=== PATIENT | female | born 1960 | race Caucasian/White ===

== ENCOUNTER 2023-11-10 09:39 | Outpatient (REF) | payer MEDICAID, SELFPAY ==
--- NOTE | ~2023-11-10 | XR_ITS ---
EXAMINATION: XR SHOULDER, RIGHT CLINICAL INFORMATION: Right shoulder pain COMPARISON: None available. TECHNIQUE: AP external rotation, Grashey, scapular Y, and axillary views of the right shoulder. FINDINGS: The bones and soft tissues are normal. No fracture. Glenohumeral and acromioclavicular alignment is anatomic with normal joint space. No abnormal soft tissue calcifications. XR/XR shoulder RT min 2V IMPRESSION: Normal right shoulder.
--- NOTE | ~2023-11-10 | XR_ITS ---
EXAMINATION: XR LUMBOSACRAL SPINE CLINICAL INFORMATION: Low back pain for 2 months COMPARISON: None available. TECHNIQUE: Three views of the lumbosacral spine. FINDINGS: The vertebral bodies and posterior elements are normal aside from some mild spondylitic endplate changes most marked at the superior ventral endplates of L3 and L4. Vertebral body heights are preserved. The disc spaces are preserved and the vertebral alignment is normal. The paraspinal soft tissues are normal. XR/XR lumbar spine 2-3V IMPRESSION: Mild spondylitic changes. No acute finding.
== END 2023-11-10 09:40 | disposition home or self-care (01) ==
LOC: HO.HHCX 09:39
PROVIDERS: Visit Provider Internal Medicine
DX: M25.511 Pain in right shoulder (principal)
CPT/HCPCS: 36415; 72100; 73030; 80061; 82306; 82607; 82746; 84443; 85025; 85652; 87389; 87522

== ENCOUNTER 2023-11-10 10:26 | Outpatient (REF) | payer MEDICAID, SELFPAY ==
[2023-11-10 13:09] LABS: MANUAL DIFF FLAG NO
[2023-11-10 13:22] LABS: Basophils Percent Auto 0.5 % (0-2); Eosinophils Absolute Auto 0.1 X10*3/uL (0.0-0.4); Eosinophils Percent Auto 1.4 % (0-4); Hematocrit 40.4 % (37.0-47.0); Hemoglobin 13.4 g/dl (12.0-16.0); Imm Gran Abs Auto 0.01 X10*3/uL (0.00-0.03); Imm Gran Pct Auto 0.2 % (0.0-0.4); Lymphocytes Absolute Auto 1.4 X10*3/uL (1.2-4.9); Lymphocytes Percent Auto 32.8 % (20-40); Mean Corpuscular HGB Conc 33.2 g/dl (31.0-35.0); Mean Corpuscular Hemoglobin 29.1 pg (27.0-33.0); Mean Corpuscular Volume 87.6 fL (80.0-98.0); Mean Platelet Volume 10.7 fL (9.4-12.3); Monocytes Absolute Auto 0.3 X10*3/uL (0.1-1.2); Monocytes Percent Auto 7.5 % (2-11); Neutrophils Absolute Auto 2.4 x10*3/uL (2.0-8.3); Neutrophils Percent Auto 57.6 % (45-73); Platelet Count 236 X10*3/uL (160-400); Red Blood Count 4.61 X10*6/uL (4.20-5.50); Red Cell Distribution Width 13.2 % (11.0-16.0); White Blood Count 4.2 X10*3/uL (4.8-10.8)
[2023-11-10 13:46] LABS: Cholesterol 291 mg/dL (<200); HDL Cholesterol 43 mg/dL (>40); LDL Cholesterol Calculated 212 mg/dL (<100); Triglycerides 180 mg/dL (<150)
[2023-11-10 14:02] LABS: Erythrocyte Sedimentation Rate 11 MM/HR (0-20); Folate 11.3 ng/mL (> or = 4.0); Vitamin B12 560 pg/mL (200-900)
[2023-11-10 14:03] LABS: TSH reflex Free T4 1.67 uIU/mL (0.32-4.0); Vitamin D 25-OH Total 43.6 ng/mL (>30)
[2023-11-10 14:58] LABS: HIV AB/AG Nonreactive (Nonreactive); HIV Num 1 0.06 S/CO (0.00-0.99)
[2023-11-13 16:04] LABS: HCV Log PCR <1.18 NOT DETECTED Log IU/mL (NOT DETECTED); HepC Viral Load <15 NOT DETECTED IU/mL (NOT DETECTED)
== END 2023-11-10 10:27 | disposition home or self-care (01) ==
LOC: HO.HHCL 10:26
PROVIDERS: Visit Provider Internal Medicine
DX: M54.50 Low back pain, unspecified (principal); R53.83 Other fatigue; R03.0 Elevated blood-pressure reading, without diagnosis of hypertension
CPT/HCPCS: 36415; 80061; 82306; 82607; 82746; 84443; 85025; 85652; 87389; 87522

== ENCOUNTER 2024-03-01 15:11 | Outpatient (REF) | payer MEDICAID, SELFPAY ==
--- NOTE | ~2024-03-01 | MM_ITS ---
EXAMINATION: MM SCREENING DIGITAL BREAST TOMOSYNTHESIS, BILATERAL CLINICAL INFORMATION: Screening. Asymptomatic. COMPARISON: Mammography: Comparison is made with available priors TECHNIQUE: Digital breast mammography with tomosynthesis is performed in both the craniocaudal and mediolateral oblique views along with computer-aided detection (CAD). FINDINGS: There are scattered areas of fibroglandular density (ACR BI-RADS breast composition Category b). There are no significant masses, abnormal calcifications, or other abnormalities. MM/MM tomosynthesis screening BI IMPRESSION: No mammographic evidence of malignancy. ASSESSMENT: BI-RADS BI-RADS 1 - Negative RECOMMENDATION: Routine annual mammography screening. 1 year F/U This examination should not preclude the clinical evaluation of a suspicious palpable abnormality. This patient's information was entered into a reminder system with a target due date for their next mammogram. Electronically signed by: Mily Dean DO 03/14/2024 03:47 PM PRINCE
== END 2024-03-01 15:12 | disposition home or self-care (01) ==
LOC: HO.MAMMO 15:11
PROVIDERS: PCP Internal Medicine; Visit Provider Internal Medicine
DX: Z12.31 Encounter for screening mammogram for malignant neoplasm of breast (principal)
CPT/HCPCS: 77063; 77067

== ENCOUNTER → 2024-03-01 15:45 | Outpatient (BNV) | payer MEDICAID, SELFPAY | PROVIDERS: PCP Internal Medicine; Visit Provider Internal Medicine | DX: Z12.31 Encounter for screening mammogram for malignant neoplasm of breast (principal) | CPT/HCPCS: 77063; 77067 ==

== ENCOUNTER 2024-09-06 09:49 | Outpatient (REF) | payer MEDICAID, SELFPAY ==
--- OUTSIDE RECORDS SUMMARY | 2024-09-06 11:03 | XMS_ITS | Clinical Summary ---
Author Organization [employer] Address [address] [place] [address] Care Team Providers Care Box Brander Name Role Phone Italo Killian MD Primary Care Prov ider Allergies Active Allergy Reactions Criticality Noted Date Comments Paroxetine Dizziness 11/10/2023 Medications meloxicam (Mobic) 15 MG tabletIndication s:Acute pain of right shoulder,Low back pain radiating down leg Take 1 tablet (15 mg) by mouth Once per day. 30 tablet 11 11/10/2023 5 Active rosuvastatin (Crestor) 20 MG tabletIndication s:Hypercholester olemia Take 1 tablet (20 mg) by mouth Once per day. 30 tablet 11 11/13/2023 5 Active Blood Pressure kit 1 kit Once per day. 1 kit 01/18/2024 Active losartan (Cozaar) 25 MG tablet Take 1 tablet (25 mg) by mouth Once per day. 90 tablet 3 06/30/2024 6 Active Active Problems Problem Noted Date Diagnosed Date Chronic right-sided low back pain without sciati ca 02/15/2024 Assessment & Plan (02/15/2024 9:31 AM EDT): Will refer to PT, patient refers pain is localized Primary hypertension 01/18/2024 Assessment & Plan (06/30/2024 10:46 AM EST): Controlled, continue low sodium diet and exercise as tolerated, keep bp log, new labs ordered, will follow up in 3 months Assessment & Plan (02/15/2024 9:29 AM EDT): Controlled, continue losartan, keep low sodium diet and exercise as tolerated, follow up in 3 months Assessment & Plan (01/18/2024 4:21 PM EDT): Will start on losartan, told to decrease sodium in diet, exercise as tolerated, keep bp log, follow up in 1 month Encounter for medical examination to establish c are 01/18/2024 Assessment & Plan (01/18/2024 4:23 PM EDT): PMHx: Cholesterol/mdd Psh: - All Paroxetine Meds Rosuvastatin Patient not working on disability due to MDD hx A0 LMP 2001 Screening for colon cancer 01/18/2024 Assessment & Plan (01/18/2024 4:24 PM EDT): Will place referral for evaluation Screening for cervical cancer 01/18/2024 Assessment & Plan (01/18/2024 4:25 PM EDT): Will refer for a pap smear with a female provider Screening for breast cancer 01/18/2024 Encounter for screening mamm ogram for malignant neoplasm of breast 01/18/2024 Chronic right shoulder pain 01/18/2024 Assessment & Plan (01/18/2024 4:27 PM EDT): Will refer for pt Mixed conductive and sensori neural hearing loss of both ears 01/18/2024 Assessment & Plan (01/18/2024 4:28 PM EDT): Will refer to audiology for hearing loss eval Depressed mood 05/01/2016 Pure hypercholesterolemia 05/13/2011 Assessment & Plan (06/30/2024 10:47 AM EST): Patient stopped taking rosuvastatin 3-4 months ago, risk were discussed, including high risk for stroke and MA, new labs ordered Assessment & Plan (02/15/2024 9:30 AM EDT): On rosuvastatin, refers not skipping medication, will order new labs for guidance of therapy Assessment & Plan (01/18/2024 4:19 PM EDT): On rosuvastatin, she refers has not been taking it, reivewed lab results and risk vs benefits of taking medication, she refers she will restart treatment Allergic rhinitis 05/13/2011 Eating disorder 03/29/2008 Dizziness and giddiness 03/08/2008 Encounters Date Type Department Care Team Description 07/22/2024 Population Health Risk Score Community Care [facility] ([facility]) Department [address] [address] [place] [id number] Provider, Population Health Generic 06/30/2024 10:30 AM EST Telemedicine [facility] [address] [place] [address] Italo Killian MD Primary hypertension (Primary Dx); Pure hypercholesterolemia 06/30/2024 Travel from Last 3 Months Immunizations Name Administration Dates Next Due Influenza, seasonal, injectable, preservative fr ee 01/18/2024 Tdap 01/18/2024 Family History Medical History Relation Name Comments Prostate cancer Father Lung cancer Father's Brother Bone cancer Father's Sister Alzheimer's disease Mother Relation Name Status Comments Father Father's Brother Father's Sister Mother Social History Tobacco Use Types Packs/Day Years Used Date Smoking Tobacco: Never Passive Smoke Exposure: Never Smokeless Tobacco: Never Tobacco Cessation:Counseling Given: Not Answered Alcohol Use Standard Drinks/Week Comments Never 0 (1 standard drink = 0.6 oz pur e alcohol) Depression Answer Date Recorded Patient Health Questionnaire-9 Score 6 01/18/2024 Patient Health Questionnaire-9 Score 6 01/18/2024 Last PHQ-9: Questionnaire Data Not on file 0 01/18/2024 Housing Stability Answer Date Recorded What is your housing situation today? I have karma smith 01/07/[address] you li ve. Do you have problems with any of the following? None of the above 01/07/2024 Food Insecurity Answer Date Recorded Within the past 12 months, y ou worried that your food would run out before you got money to buy more: Never True 01/07/2024 Within the past 12 months,th e food you bought just didn't last and you didn't have enough money to get more: Never True Transportation Answer Date Recorded In the past 12 months, has l ack of transportation kept you from medical appts, meetings, work or from getting things needed for daily living? Yes, it has kept me from medical appointments or getting medications. 01/07/2024 Utilities Answer Date Recorded In the past 12 months, has t he electric, gas, oil or water company threatened to shut off services in your home? No 01/07/2024 Depression Answer Date Recorded Patient Health Questionnaire-2 Score 0 01/18/2024 Internet Access Answer Date Recorded Internet Access Q1 Yes 01/11/2024 Internet Access Q2 Not on file 01/11/2024 Comments Unknown Sex and Gender Information Value Date Recorded Sex Assigned at Female 03/10/2022 10:16 AM EDT Legal Sex Female 10:16 AM EDT Gender Identity Female 03/10/2022 10:16 AM EDT Sexual Orientation Straight 03/10/2022 10 :16 AM EDT Last Filed Vital Signs Vital Sign Reading Time Taken Comments Blood Pressure 118/58 06/30/2024 10:38 AM EST Pulse 68 06/30/2024 10:38 AM EST Temperature 36.3 ??C (97.4 ??F) 01/18/2024 10:59 AM E DT Respiratory Rate 20 01/18/2024 10:59 AM EDT Oxygen Saturation 99% 01/18/2024 10:59 AM EDT Inhaled Oxygen Concentration - - Weight 53.5 kg (118 lb) 01/18/2024 10:59 AM EDT Height 148.6 cm (4' 10.5 ) 01/18/2024 10:59 AM E DT Body Mass Index 24.24 01/18/2024 10:59 AM EDT Plan of Treatment Upcoming Encounters Date Type Department Care Team (Late st Contact Info) Description 09/20/2024 9:00 AM EDT Procedure Visit [facility] [address] [place] [address] Joann Ny MD [address] [place] [address] 09/27/2024 1:30 PM EDT Office Visit [facility] [address] [place] [address] Italo Killian MD [address] [place] [address] Health Maintenance Due Date Last Done Comments CT Colonography 1961 Colonoscopy 1961 Colorectal Cancer Screening 1961 FIT DNA/Cologuard 1961 FIT 1961 FOBT 1961 Sigmoidoscopy 1961 Alcohol/Substance Use Screening 1973 Pap Smear 1982 Cervical Cancer Screening 1991 HPV/Cotest 1991 Pneumococcal Vaccine: 50+ Years (1 of 1 - PCV) 2011 Zoster Vaccines (1 of 2) 2011 COVID-19 Vaccine ( - 2023-2 5 season) 2024 SDOH Screening 01/06/2025 01/07/2024 Depression Screening 01/17/2025 01/18/2024, 01/18/2024 Tobacco Screening 02/03/2025 02/04/2024 Mammogram 03/01/2026 03/01/2024 Lipid Panel 11/09/2028 11/10/2023 DTaP/Tdap/Td Vaccines (2 - T d or Tdap) 01/17/2034 01/18/2024, 03/10/2006, 01/23/2000 RSV Patients and Patients Aged 60 years or older (1 - 1-dose 75+ series) 2036 HIV Screening Completed 11/10/2023 Hepatitis C Screening Completed 11/10/2023 Influenza Vaccine Completed 01/18/2024 HIB Vaccines Aged Out No longer eligi ble based on patient's age to complete this topic HPV Vaccines Aged Out No longer eligi ble based on patient's age to complete this topic Hepatitis A Vaccines Aged Out No long er eligible based on patient's age to complete this topic Hepatitis B Vaccines Aged Out No long er eligible based on patient's age to complete this topic IPV Vaccines Aged Out No longer eligi ble based on patient's age to complete this topic Meningococcal Vaccine Aged Out No oscar gordy eligible based on patient's age to complete this topic RSV under 20 months Aged Out No longe r eligible based on patient's age to complete this topic Rotavirus Vaccines Aged Out No longer eligible based on patient's age to complete this topic Procedures Procedure Name Priority Date/Time Associated Diagnosis Comments BI MAMMOGRAM SCREENING TOMOSYNTHESIS BILATERAL Routine 03/01/2024 3:20 PM EDT Encounter for screening mammogram for malignant neoplasm of breast HEPATITIS C VIRAL RNA, QUANTITATIVE, REAL-TIME PCR Routine 11/10/2023 10:30 AM EDT Other fatigue Elevated BP without diagnosis of hypertension HIV 1/2 ANTIGEN/ANTIBODY, FOURTH GENERATION W/RFL Routine 11/10/2023 10:30 AM EDT Other fatigue Elevated BP without diagnosis of hypertension LIPID PANEL, STANDARD Routine 11/10/2023 10:30 AM EDT Other fatigue Elevated BP without diagnosis of hypertension from Last 3 Months or Most Recently Relevant to Health Maintenance Results * BI Mammogram Screening Tomosynthesis Bilateral (03/01/2024 3:20 PM EDT) Anatomical Region Laterality Modality Breast Bilateral Mammography 03/01/2024 3:20 PM EDT Narrative 03/14/2024 3:50 PM EST ? [facility] ? [address] ?[place] [address] ? Mammography Report ? Signed ? Patient: Price,Tamiko ?MR#: [id number] ? : 1960 ?Acct:[id number] ? Age/Sex: 63 / F ?ADM Date: 10/22/24 ? Loc: HO.MAMMO ? Attending Dr: Italo Bermudez MD ? Ordering Physician: Italo Killian MD ?Res ?? ults: 1Negative ? Date of Service: 03/01/24 ?Follow Up: 1 Year From Orig ?? inal Mammogram ? Procedure(s): MM tomosynthesis screening BI ?? Accession Number(s): [id number] ? cc: Italo Killian MD ? EXAMINATION: ?? MM SCREENING DIGITAL BREAST TOMOSYNTHESIS, BILATERAL ? CLINICAL INFORMATION: ? Screening. Asymptomatic. ? COMPARISON: ?? Mammography: Comparison is made with available priors ? TECHNIQUE: ?? Digital breast mammography with tomosynthesis is performed in both the ?? craniocaudal and mediolateral oblique views along with computer-aided ?? detection (CAD). ? FINDINGS: ?? There are scattered areas of fibroglandular density (ACR BI-RADS breast ?? composition Category b). ? There are no significant masses, abnormal calcifications, or other ?? abnormalities. ? MM/MM tomosynthesis screening BI ?? IMPRESSION: ?? No mammographic evidence of malignancy. ? ASSESSMENT: ? BI-RADS BI-RADS 1 - Negative ? RECOMMENDATION: ?? Routine annual mammography screening. ? 1 year F/U ? This examination should not preclude the clinical evaluation of a ?? suspicious palpable abnormality. ? This patient's information was entered into a reminder system with a ?? target due date for their next mammogram. ? Electronically signed by: ??Mily Dean DO ??03/14/2024 03:47 PM EST ?? RP ? Dictated By: ?Mily Dean DO ? Signed By: ?<Electronically signed by Mily Dean, DO in OV> ? 03/14/24 1547 ? DD/ 1520 ? TD/TT: 03/01/24 1536 ? Information Receptionist: ? Procedure Note Donotuseinterpreter, Image - 03/14/2024 [facility] [address] [place] [address] Mammography Report Signed Patient: Shalini Price VMR#: [id number] : 2Acct:[id number] Age/Sex: 63 / FADM Date: 03/01/24 Loc: HO.MAMMO Attending Dr: Italo Bermudez MD Ordering Physician: Italo Killian ults: 1Negative Date of Service: 03/01/24Follow Up: 1 Year From Orig inal Mammogram Procedure(s): MM tomosynthesis screening BI Accession Number(s): [id number] cc: Italo Killian MD EXAMINATION: MM SCREENING DIGITAL BREAST TOMOSYNTHESIS, BILATERAL CLINICAL INFORMATION: Screening. Asymptomatic. COMPARISON: Mammography: Comparison is made with available priors TECHNIQUE: Digital breast mammography with tomosynthesis is performed in both the craniocaudal and mediolateral oblique views along with computer-aided detection (CAD). FINDINGS: There are scattered areas of fibroglandular density (ACR BI-RADS breast composition Category b). There are no significant masses, abnormal calcifications, or other abnormalities. MM/MM tomosynthesis screening BI IMPRESSION: No mammographic evidence of malignancy. ASSESSMENT: BI-RADS BI-RADS 1 - Negative RECOMMENDATION: Routine annual mammography screening. 1 year F/U This examination should not preclude the clinical evaluation of a suspicious palpable abnormality. This patient's information was entered into a reminder system with a target due date for their next mammogram. Electronically signed by: Mily Dean DO 03/14/2024 03:47 PM EST Dictated By: Mily Dean DO Signed By: <Electronically signed by Mily Dean DO in OV> 03/14/24 1547 DD/ 1520 TD/TT: 03/01/24 1536 Information Receptionist: us Italo Bermudez MD IMG BI PROCEDURES Edited Result - Final * Hepatitis C Viral RNA, Quantitative, Real-Time PCR (11/10/2023 10:30 AM EDT) Pathologist [facility] Hepatitis C Viral Load <15 NOT DETECTED NOT DETECTED IU/mL [facility] HCV Log PCR <1.18 NOT DETECTED NOT DETECTED Log IU/mL [facility] Comment:For additional infor susan, please refer [email or web address].[email or web address]/faq/[email or web address](This link is being provided for informational/educational purposes only.)THIS TEST WAS PERFORMED AT:[facility] [place] [phone] BARNHART MD Blood Venous blood specimen / Unknown 11/10/2023 10:30 AM EDT 11/10/2023 1:02 PM EDT us Lisbeth Velez MD LAB BLOOD ORDERABLES Final Result [facility] [address] [place] [phone] [phone] * HIV-1/2 Antigen and Antibodies, Fourth Generation, with Reflexes (11/10/2023 10:30 AM EDT) Pathologist [facility] HIV AB/AG Nonreactive Nonreactive [facility] Comment:HIV-1 p24 Ag and/or HIV-1/HIV-2 Ab not detected.A test result that is nonreactive does not exclude thepossibility of exposure to or infection with HIV-1 and/orHIV-2. Nonreactive results in this assay for individualswith prior exposure to HIV-1 and/or HIV-2 may be due toantigen and antibody levels that are below the limit ofdetection of this assay.The [employer] HIV Ag/Ab Combo assay result andsupplemental assay results should be interpreted inconjunction with the patient's clinical presentation,history and other laboratory results. If the results areinconsistent with clinical evidence, additional testing issuggested to confirm the result. Blood Venous blood specimen / Unknown 11/10/2023 10:30 AM EDT 11/10/2023 1:02 PM EDT us Lisbeth Velez MD LAB BLOOD ORDERABLES Final Result Performing Organization Address [facility]/ZIP Co de Phone Number [facility] [address] [place] [address] [phone] * (ABNORMAL) Lipid Panel, Standard (11/10/2023 10:30 AM EDT) Triglycerides 180(H) <150 mg/dL [facility] Comment:Desirable Triglyceri de: less than 150 mg/dLBorderline High Triglyceride 150-199 mg/dLHigh Triglyceride: 200-499 mg/dLVery High Triglyceride: greater than or equal to 5OO mg/dL Cholesterol 291(H) <200 mg/dL [facility] Comment:Desirable Cholestero l: less than 200 mg/dLBorderline High Cholesterol: 200-239 mg/dLHigh Cholesterol: greater than 239 mg/dL LDL Cholesterol Calculated 212(H) <100 mg/dL [facility] Comment:Desirable LDL: less than 100 mg/dLNear Optimal/Above Optimal LDL: 110- 129 mg/dLBorderline High LDL: 130-159 mg/dLHigh LDL: 160-189 mg/dLVery High LDL: greater than or equal to 190 mg/dL HDL Cholesterol 43 >40 mg/dL [facility] Comment:Desirable HDL: great er than 40 mg/dL Note: This HDL assay may give artificially low results in patients with liver disease. Blood Venous blood specimen / Unknown 11/10/2023 10:30 AM EDT 11/10/2023 1:05 PM EDT us Lisbeth Velez MD LAB BLOOD ORDERABLES Final Result Performing Organization Address [facility]/ZIP Co de Phone Number [facility] [address] [place] [address] [phone] from Last 3 Months or Most Recently Relevant to Health Maintenance Insurance [facility] C3 Care Teams Box Brander Relationship Specialty Start Date End Date Italo Killian MD [address] [place] [id number] PCP - General Internal Medicine 01/18/24
[2024-09-06 14:25] LABS: MANUAL DIFF FLAG NO
[2024-09-06 14:30] LABS: Basophils Percent Auto 0.4 % (0-2); Eosinophils Absolute Auto 0.3 X10*3/uL (0.0-0.4); Eosinophils Percent Auto 6.3 % (0-4); Hematocrit 42.6 % (37.0-47.0); Hemoglobin 13.9 g/dl (12.0-16.0); Imm Gran Abs Auto 0.01 X10*3/uL (0.00-0.03); Imm Gran Pct Auto 0.2 % (0.0-0.4); Lymphocytes Absolute Auto 1.6 X10*3/uL (1.2-4.9); Lymphocytes Percent Auto 35.4 % (20-40); Mean Corpuscular HGB Conc 32.6 g/dl (31.0-35.0); Mean Corpuscular Hemoglobin 28.7 pg (27.0-33.0); Mean Platelet Volume 11.1 fL (9.4-12.3); Monocytes Absolute Auto 0.4 X10*3/uL (0.1-1.2); Monocytes Percent Auto 8.2 % (2-11); Neutrophils Absolute Auto 2.3 x10*3/uL (2.0-8.3); Neutrophils Percent Auto 49.5 % (45-73); Platelet Count 247 X10*3/uL (160-400); Red Blood Count 4.84 X10*6/uL (4.20-5.50); Red Cell Distribution Width 13.5 % (11.0-16.0); White Blood Count 4.6 X10*3/uL (4.8-10.8)
[2024-09-06 14:52] LABS: Alanine Aminotransferase 24 U/L (0-31); Albumin Level 4.6 g/dL (3.5-5.0); Alkaline Phosphatase 60 U/L (39-117); Anion Gap 12 (12-20); Aspartate Amino Transferase 33 U/L (5-31); Bilirubin Total 0.5 mg/dL (0.0-1.0); Blood Urea Nitrogen 10 mg/dL (9-16); Calcium 9.6 mg/dL (8.4-10.2); Carbon Dioxide 29 mmol/L (22-29); Chloride 105 mmol/L (96-108); Cholesterol 227 mg/dL (<200); Estimated Glomerular Filt Rate > 60; Glucose Random 84 mg/dL (60-115); HDL Cholesterol 39 mg/dL (>40); LDL Cholesterol Calculated 129 mg/dL (<100); Sodium 141 mmol/L (135-145); Total Protein 7.6 g/dL (6.5-8.0); Triglycerides 295 mg/dL (<150)
== END 2024-09-06 09:50 | disposition home or self-care (01) ==
LOC: HO.CHCLDS 09:49
PROVIDERS: Visit Provider Internal Medicine
DX: I10 Essential (primary) hypertension (principal)
CPT/HCPCS: 36415; 80053; 80061; 85025

== ENCOUNTER 2025-03-07 14:53 | Outpatient (REF) | payer MEDICAID, SELFPAY ==
--- OUTSIDE RECORDS SUMMARY | 2025-03-07 19:18 | XMS_ITS | Clinical Summary ---
Author Organization [employer] Address [address] [place] [address] Care Team Providers Care Optoelectronic Technician Name Role Phone Italo Killian MD Primary Care Prov ider Allergies Active Allergy Reactions Criticality Noted Date Comments Paroxetine Dizziness 11/10/2023 Medications Blood Pressure kit 1 kit Once per day. 1 kit 01/18/20 24 Active fluticasone (Flonase) 50 MCG/ACT nasal spray Administer 1-2 sprays into each nostril Once per day. Shake gently. Before first use, prime pump. After use, clean tip and replace cap. 16 g 2 09/28/19 25 026 Active cetirizine (ZyrTEC) 10 MG tablet Take 1 tablet (10 mg) by mouth Once per day. 90 tablet 3 09/28/19 25 026 Active rosuvastatin (Crestor) 20 MG tabletIndicati ons:Hyperchole sterolemia Take 1 tablet (20 mg) by mouth Once per day. 30 tablet 11 11/13/19 24 025 Discontinued losartan (Cozaar) 25 MG tablet Take 1 tablet (25 mg) by mouth Once per day. 90 tablet 3 06/30/19 25 025 Discontinued Active Problems Problem Noted Date Diagnosed Date Chronic right-sided low back pain without sciati ca 02/15/2024 Assessment & Plan (02/15/2024 9:31 AM EDT): Will refer to PT, patient refers pain is localized Primary hypertension 01/18/2024 Assessment & Plan (02/21/2025 11:17 AM EDT): Controlled with diet and lifestyle modifications continue low sodium diet, keep blood pressure log, follow up in 4 months Assessment & Plan (09/27/2024 1:33 PM EDT): Uncontrolled, she refers at home remains below 140/90, she is not taking losartan as prescribed, risk were dicussed including /SC/CVA. She understands the risk and wants to avoid taking medication for now Assessment & Plan (06/30/2024 10:46 AM EST): [...] 05/01/2016 Pure hypercholesterolemia 05/13/2011 Assessment & Plan (02/21/2025 11:19 AM EDT): Will order new blood test for guidance of therapy Assessment & Plan (09/27/2024 1:34 PM EDT): Patient no taking rosuvastatin, wants to do diet and natural remedies instead, discussed blood work results, risk were discussed. Assessment & Plan (06/30/2024 10:47 AM EST): Patient stopped taking rosuvastatin 3-4 months ago, risk were discussed, including high risk for stroke and SC, new labs ordered Assessment & Plan (02/15/2024 [...] Encounters Date Type Department Care Team Description 02/21/2025 10:30 AM EDT Telemedicine [facility] [address] [place] [address] Italo Killian MD Primary hypertension (Primary Dx); Pure hypercholesterolemia; Screening for colon cancer 02/21/2025 Travel from Last 3 Months Immunizations Immunization Administration Dates Next Due Influenza, seasonal, injectable, [...] Answer Date Recorded Patient Health Questionnaire-9 Score 5 02/21/2025 Patient Health Questionnaire-9 Score 5 02/21/2025 Last PHQ-9: Questionnaire Data Not on file 1 Housing Stability Answer Date Recorded What is your housing situation today? I have karma smith 02/21/[address] you li ve. Do you have problems with any of the following? None of the above 02/21/2025 Food Insecurity Answer Date Recorded Within the past 12 months, y ou worried that your food would run out before you got money to buy more: Never True 02/21/2025 Within the past 12 months,th e food you bought just didn't last and you didn't have enough money to get more: Never True Transportation Answer Date Recorded In the past 12 months, has l ack of transportation kept you from medical appts, meetings, work or from getting things needed for daily living? No 02/21/2025 Utilities Answer Date Recorded In the past 12 months, has t he electric, gas, oil or water company threatened to shut off services in your home? No 02/21/2025 Depression Answer Date Recorded Patient Health Questionnaire-2 Score 2 02/21/2025 Internet Access Answer Date Recorded Internet Access Q1 Yes 02/21/2025 Internet Access Q2 Not on file 02/21/2025 Comments Unknown Sex and Gender Information Value Date Recorded Sex Assigned at Female 03/10/2022 10:16 AM EDT Legal Sex Female 10:16 AM EDT Gender Identity Female 03/10/2022 10:16 AM EDT Sexual Orientation Straight 03/10/2022 10 :16 AM EDT Last Filed Vital Signs Vital Sign Reading Time Taken Comments Blood Pressure 124/65 02/21/2025 10:23 AM EDT Pulse 88 09/27/2024 1:11 PM EDT Temperature 36.7 C (98.1 F) 09/27/2024 1:11 PM EDT Respiratory Rate 16 09/27/2024 1:11 PM EDT Oxygen Saturation 97% 09/27/2024 1:11 PM EDT Inhaled Oxygen Concentration - - Weight 54.9 kg (121 lb) 09/27/2024 1:11 PM EDT Height 148.6 cm (4' 10.5 ) 09/27/2024 1:11 PM ED T Body Mass Index 24.86 09/27/2024 1:11 PM EDT Plan of Treatment Health Maintenance Due Date Last Done Comments CT Colonography 1961 Colonoscopy 1961 Colorectal Cancer Screening 1961 FIT DNA/Cologuard 1961 FIT 1961 FOBT 1961 Sigmoidoscopy 1961 Pap Smear 1982 Cervical Cancer Screening 1991 HPV/Cotest 1991 Pneumococcal Vaccine: 50+ Years (1 of 1 - PCV) 2011 Zoster Vaccines (1 of 2) 2011 COVID-19 Vaccine (1 - 2023-2 5 season) 2025 Influenza Vaccine (#1) 2025 01/18/2024 Tobacco Screening 02/03/2025 02/04/2024 Alcohol/Substance Use Screening 02/21/2026 02/21/2025 Depression Screening 02/21/2026 02/21/2025, 02/21/2025 Disability Screening 02/21/2026 02/21/2025 SDOH Screening 02/21/2026 02/21/2025 Mammogram 03/01/2026 03/01/2024 Lipid Panel 09/06/2029 09/06/2024, 11/10/2023 DTaP/Tdap/Td Vaccines (2 - T d or Tdap) 01/17/2034 01/18/2024, 03/10/2006, 01/23/2000 RSV Patients and Patients Aged 60 years or older (1 - 1-dose 75+ series) 2036 HIV Screening Completed 11/10/2023 Hepatitis C Screening Completed 11/10/2023 HIB Vaccines Aged Out No longer eligi [...] patient's age to complete this topic Meningococcal B Vaccine Aged Out No l onger eligible based on patient's age to complete [...] Procedure Name Priority Date/Time Associated Diagnosis Comments LIPID PANEL, STANDARD Routine 09/06/2024 9:30 AM EDT Primary hypertension BI MAMMOGRAM SCREENING TOMOSYNTHESIS BILATERAL Routine 03/01/2024 [...] Recently Relevant to Health Maintenance Results * (ABNORMAL) Lipid Panel, Standard (09/06/2024 9:30 AM EDT) Triglycerides 295(H) <150 mg/dL [facility] Comment:Desirable Triglyceri de: less than 150 mg/dLBorderline High Triglyceride 150-199 mg/dLHigh Triglyceride: 200-499 mg/dLVery High Triglyceride: greater than or equal to 5OO mg/dL Cholesterol 227(H) <200 mg/dL [facility] Comment:Desirable Cholestero l: less than 200 mg/dLBorderline High Cholesterol: 200-239 mg/dLHigh Cholesterol: greater than 239 mg/dL LDL Cholesterol Calculated 129(H) <100 mg/dL [facility] Comment:Desirable LDL: less than 100 mg/dLNear Optimal/Above Optimal LDL: 110- 129 mg/dLBorderline High LDL: 130-159 mg/dLHigh LDL: 160-189 mg/dLVery High LDL: greater than or equal to 190 mg/dL HDL Cholesterol 39(L) >40 mg/dL [facility] Comment:Desirable HDL: great er than 40 mg/dL Note: This HDL assay may give artificially low results in patients with liver disease. Blood Venous blood specimen / Unknown 09/06/2024 9:30 AM EDT 09/06/2024 2:20 PM EDT us Italo Bermudez MD LAB BLOOD ORDERABL ES Final Result [facility] [address] [place] [phone] * BI Mammogram Screening Tomosynthesis Bilateral (03/01/2024 3:20 PM EDT) Anatomical Region Laterality Modality Breast Bilateral Mammography 03/01/2024 3:20 PM EDT Narrative 03/14/2024 3:50 PM EST [facility] [address] [place] [address] Mammography Report Signed Patient: Shalini Price V MR#: [id number] : 1960 Acct:[id number] Age/Sex: 63 / F ADM Date: 03/01/24 Loc: HO.MAMMO Attending Dr: Italo Bermudez MD Ordering Physician: Italo Killian MD Res ults: 1Negative Date of Service: 03/01/24 Follow Up: 1 Year From Orig inal Mammogram Procedure(s): MM tomosynthesis screening BI Accession Number(s): [id number] cc: Italo Killian MD EXAMINATION: MM SCREENING [...] 03/14/24 1547 DD/ 1520 TD/TT: 03/01/24 1536 Tire Servicer: Procedure Note Donotuseinterpreter, Image - 03/14/2024 [facility] [address] [place] [address] Mammography Report Signed Patient: Shalini Price VMR#: [id number] : 2Acct:[id number] Age/Sex: 63 / FADM Date: 03/01/24 Loc: HO.MAMMO Attending Dr: Italo Bermudez MD Ordering Physician: Italo Killian ults: 1Negative Date of Service: 03/01/24Follow Up: 1 Year From Orig inal Mammogram Procedure(s): MM tomosynthesis screening BI Accession Number(s): [id number] cc: Italo Killian MD EXAMINATION: MM SCREENING [...] 03/14/24 1547 DD/ 1520 TD/TT: 03/01/24 1536 Tire Servicer: us Italo Bermudez MD IMG BI PROCEDURES Edited Result - Final * Hepatitis C Viral RNA, Quantitative, Real-Time PCR (11/10/2023 10:30 AM EDT) Hepatitis C Viral Load <15 NOT DETECTED NOT DETECTED IU/mL [facility] HCV Log PCR <1.18 NOT DETECTED NOT DETECTED Log IU/mL [facility] Comment:For additional infor mation, please refer tohttp://education.[employer]/faq/LDQ11l2(This link is being provided for informational/educational purposes only.)THIS TEST WAS PERFORMED AT:[facility] [place] [phone] BARNHART MD Blood Venous blood specimen / Unknown 11/10/2023 10:30 AM EDT 11/10/2023 1:02 PM EDT us Lisbeth Velez MD LAB BLOOD ORDERABLES Final Result [facility] [address] [place] [phone] * HIV-1/2 Antigen and Antibodies, Fourth Generation, with Reflexes (11/10/2023 10:30 AM EDT) HIV AB/AG Nonreactive Nonreactive [facility] Comment:HIV-1 p24 Ag and/or HIV-1/HIV-2 Ab not detected.A test result that is nonreactive does not exclude thepossibility of exposure to or infection with HIV-1 and/orHIV-2. Nonreactive results in this assay for individualswith prior exposure to HIV-1 and/or HIV-2 may be due toantigen and antibody levels that are below the limit ofdetection of this assay.The Spondo HIV Ag/Ab Combo assay result andsupplemental assay results should be interpreted inconjunction with the patient's clinical presentation,history and other laboratory results. If the results areinconsistent with clinical evidence, additional testing issuggested to confirm the result. Blood Venous blood specimen / Unknown 11/10/2023 10:30 AM EDT 11/10/2023 1:02 PM EDT us Lisbeth Velez MD LAB BLOOD ORDERABLES Final Result [facility] [address] [place] [phone] from Last 3 Months or Most Recently Relevant to Health Maintenance Insurance [facility] C3 Care Teams Optoelectronic Technician Relationship Specialty Start Date End Date Italo Killian MD [address] [place] [phone] PCP - General Internal Medicine 01/18/24
== END 2025-03-07 14:54 | disposition home or self-care (01) ==
LOC: HO.MAMMO 14:53
PROVIDERS: PCP Internal Medicine; Visit Provider Internal Medicine
DX: Z12.31 Encounter for screening mammogram for malignant neoplasm of breast (principal)
CPT/HCPCS: 77063; 77067

== ENCOUNTER → 2025-03-07 15:30 | Outpatient (BNV) | payer MEDICAID, SELFPAY | PROVIDERS: PCP Internal Medicine; Visit Provider Internal Medicine | DX: Z12.31 Encounter for screening mammogram for malignant neoplasm of breast (principal) | CPT/HCPCS: 77063; 77067 ==

== ENCOUNTER 2025-04-18 14:17 | Outpatient (REF) | payer MEDICAID, SELFPAY ==
--- OUTSIDE RECORDS SUMMARY | 2025-04-18 10:20 | XMS_ITS | Encounter Summary ---
Author Organization [employer] Address [address] [place] [address] Care Team Providers Care Equine Science Instructor Name Role Phone Italo Killian MD Primary Care Prov ider Encounter Details Date Type Department Care Team (Latest Contact Info) Description 04/18/2025 10:20 AM EST Procedure Visit [facility] [address] [place], [place] [phone] Joann Ny MD [address] [place] [address] Screening for cervical cancer (Primary Dx) Social History Tobacco Use Types Packs/Day Years Used Date Smoking Tobacco: Never Passive Smoke Exposure: Never Smokeless Tobacco: Never Alcohol Use Standard Drinks/Week Comments Never 0 [...] Orientation Straight 03/10/2022 10 :16 AM EDT documented as of this encounter Last Filed Vital Signs Vital Sign Reading Time Taken Comments Blood Pressure 134/84 04/18/2025 10:47 AM EST Pulse 76 04/18/2025 10:47 AM EST Temperature 36.3 C (97.4 F) 04/18/2025 10:47 AM EST Respiratory Rate 20 04/18/2025 10:47 AM EST Oxygen Saturation 98% 04/18/2025 10:47 AM EST Inhaled Oxygen Concentration - - Weight 48.3 kg (106 lb 6.4 oz) 04/18/2025 10:47 AM EST Height 151 cm (4' 11.45 ) 04/18/2025 10:47 AM ES T Body Mass Index 21.17 04/18/2025 10:47 AM EST documented in this encounter Plan of Treatment Scheduled Orders Name Type Priority Associated Diagnoses Orde r Schedule Pap Smear Pathology and Cytology Routine Screening for cervical cancer Ordered: 04/18/2025 HPV High Risk with Reflex to Subtypes Lab Routine Screening for cervical cancer Ordered: 04/18/2025 documented as of this encounter Visit Diagnoses Diagnosis Screening for cervical cancer- Primary Screening for malignant neoplasm of the cervix documented in this encounter Additional Health Concerns Assessment Noted Time PHQ-9 Depression Total Score: 5 02/22/20 25 10:21 AM EDT documented as of this encounter Care Teams Equine Science Instructor Relationship Specialty Start Date End Date Italo Killian MD [address] [place] [phone] PCP - General Internal Medicine 01/18/24 documented as of this encounter
--- OUTSIDE RECORDS SUMMARY | 2025-04-18 20:17 | XMS_ITS | Encounter Summary ---
Author Organization [employer] Address [address] [place] [address] Care Team Providers Care Middle School Art Teacher Name Role Phone Italo Killian MD Primary Care Prov ider Encounter Details Date Type Department Care Team (Latest Contact Info) Description 04/15/2025 Travel Social History Tobacco Use Types Packs/Day Years [...] is your housing situation today? I have karmadani smith 02/21/[address] you [...] AM EDT documented as of this encounter Plan of Treatment Not on file documented as of this encounter Visit Diagnoses Not on filedocumented in this encounter Additional Health Concerns Assessment Noted Time PHQ-9 Depression Total Score: 5 02/22/20 25 10:21 AM EDT documented as of this encounter Care Teams Middle [employer] Art Teacher Relationship Specialty Start Date End Date Italo Killian MD [address] [place] [phone] PCP - General Internal Medicine 01/18/24 documented as of this encounter
--- OUTSIDE RECORDS SUMMARY | 2025-04-18 20:17 | XMS_ITS | Encounter Summary ---
Author Organization [employer] Address [address] [place] [address] Care Team Providers Care Expeditionary Fighting Vehicle Crewman Name Role Phone Italo Killian MD Primary Care Prov ider Reason for Visit * Reason Onset Date Comments chart prep 04/17/2025 Encounter Details Date Type Department Care Team ([facility] Contact Info) Description 04/17/[address] [facility] [address] [place], [place] [phone] Italo Killian MD [address] [place] [address] chart prep Social History Tobacco Use Types Packs/Day Years [...] AM EDT documented as of this encounter Miscellaneous Notes * Telephone Encounter - Jenny Almanzar [place] - 04/17/2025 2:49 PM EST Chart Prep Labs: not applicable Images: not applicable Referrals: not applicable Vaccines due: Covid, Flu, PCV20, and Zoster Screenings: not applicable Overdue care gaps: Tobacco documented in this encounter Plan of Treatment Not on file documented as of this encounter Visit Diagnoses Not on filedocumented in this encounter Additional Health Concerns Assessment Noted Time PHQ-9 Depression Total Score: 5 02/22/20 25 10:21 AM EDT documented as of this encounter Care Teams Expeditionary Fighting Vehicle Crewman Relationship Specialty Start Date End Date Italo Killian MD [address] [place] [phone] PCP - General Internal Medicine 01/18/24 documented as of this encounter
--- OUTSIDE RECORDS SUMMARY | 2025-04-18 20:17 | XMS_ITS | Clinical Summary ---
Author Organization [employer] Address [address] [place] [address] Care Team Providers Care Injection Molding Operator Name Role Phone Italo Killian MD Primary Care Prov ider Allergies Active Allergy Reactions Criticality Noted Date Comments Paroxetine Dizziness 11/10/2023 Medications Blood Pressure kit 1 kit Once per day. 1 kit 4 Active fluticasone (Flonase) 50 MCG/ACT nasal spray Administer 1-2 sprays into each nostril Once per day. Shake gently. Before first use, prime pump. After use, clean tip and replace cap. 16 g 2 5 09/28/19 26 Active cetirizine (ZyrTEC) 10 MG tablet Take 1 tablet (10 mg) by mouth Once per day. 90 tablet 3 5 09/28/19 26 Active Active Problems Problem Noted Date Diagnosed [...] losartan as prescribed, risk were dicussed including /NV/CVA. She understands the risk and wants to [...] discussed, including high risk for stroke and NV, new labs ordered Assessment & Plan (02/15/2024 9:30 AM EDT): On rosuvastatin, refers not skipping medication, will order new labs for guidance of therapy Assessment & Plan (01/18/2024 4:19 PM EDT): On rosuvastatin, she refers has not been taking it, reivewed lab results and risk vs benefits of taking medication, she refers she will restart treatment Allergic rhinitis 05/13/2011 Hearing loss 05/13/2011 Pain in limb 12/07/2008 Eating disorder 03/29/2008 Dizziness and giddiness 03/08/2008 Encounters Date Type Department Care Team Description 04/18/2025 10:20 AM EST Procedure Visit [facility] [address] [place] [address] Joann Ny MD Screening for cervical cancer (Primary Dx) 04/18/2025 Travel 04/17/2025 Telephone [facility] [address] [place] [address] Italo Killian MD chart prep 04/15/2025 Travel 03/07/2025 Orders Only [facility] [address] [place] [address] Italo Killian MD 02/21/2025 10:30 AM EDT Telemedicine [facility] [address] [place] [address] Italo Killian MD Primary hypertension (Primary Dx); Pure hypercholesterolemia; Screening for colon cancer 02/21/2025 Travel from Last 3 Months Immunizations Immunization Administration Dates Next Due Influenza, seasonal, injectable, preservative fr ee 01/18/2024 TD (adult), 2 Lf tetanus tox oid, preservative free, adsorbed 03/10/2006,01/23/2000 Tdap 01/18/2024 Family History Medical History Relation Name Comments Prostate cancer Father Lung cancer Father's Sister Alzheimer's disease Mother Bone cancer Mother Relation Name Status Comments Father Father's [...] Mass Index 21.17 04/18/2025 10:47 AM EST Plan of Treatment Health Maintenance Due Date Last Done Comments CT Colonography 1961 Colonoscopy 1961 FIT 1961 Sigmoidoscopy 1961 Pap Smear 1982 Cervical Cancer Screening 1991 HPV/Cotest 1991 Influenza Vaccine (#1) 2025 01/18/2024 Postp oned from 01/09/2025 (Patient Refused) Alcohol/Substance Use Screening 02/21/2026 02/21/2025 Depression Screening 02/21/2026 02/21/2025, 02/21/2025 SDOH Screening 02/21/2026 02/21/2025 FOBT 03/27/2026 03/27/2025 Disability Screening 04/15/2026 04/15/2025 COVID-19 Vaccine (1 - 2024-2 6 season) 2026 Postponed from 01/09 (Patient Refused) Pneumococcal Vaccine: 50+ Years (1 of 1 - PCV) 04/18/2026 Postponed from 10/2011 (Patient Refused) Tobacco Screening 04/18/2026 04/18/2025 Zoster Vaccines (1 of 2) 04/18/2026 Pos tponed from 2011 (Patient Refused) Mammogram 03/07/2027 03/07/2025, 03/01/2024 Colorectal Cancer Screening 03/27/2028 FIT DNA/Cologuard 03/27/2028 03/27/2025 Lipid Panel 09/06/2029 09/06/2024, 11/10/2023 DTaP/Tdap/Td Vaccines [...] Procedure Name Priority Date/Time Associated Diagnosis Comments LAB COLOGUARD COLON CANCER SCREEN Routine 03/27/2025 9:04 AM EST Screening for colon cancer BI MAMMOGRAM SCREENING TOMOSYNTHESIS BILATERAL Routine 03/07/2025 2:56 PM EDT LIPID PANEL, STANDARD Routine 09/06/2024 9:30 AM EDT Primary hypertension HEPATITIS C VIRAL RNA, QUANTITATIVE, REAL-TIME PCR Routine 11/10/2023 10:30 AM EDT Other fatigue Elevated BP without diagnosis of hypertension HIV 1/2 ANTIGEN/ANTIBODY, FOURTH GENERATION W/RFL Routine 11/10/2023 10:30 AM EDT Other fatigue Elevated BP without diagnosis of hypertension from Last 3 Months or Most Recently Relevant to Health Maintenance Results * Cologuard?? colon cancer screening (03/27/2025 9:04 AM EST) Cologuard Result Negative Negative 04/02/20 12:25 PM EST [facility] (CLIA #:[id number]) Comment: The Cologuard (TM) test was performed on this specimen. NEGATIVE TEST RESULT. A negative Cologuard result indicates a low likelihood that a colorectal cancer (CRC) or advanced adenoma (adenomatous polyps with more advanced pre-malignant features) is present. The chance that a person with a negative Cologuard test has a colorectal cancer is less than 1 in 1500 (negative predictive value >99.9%) or has an advanced adenoma is less than 5.3% (negative predictive value 94.7%). These data are based on a prospective cross-sectional study of 10,000 individuals at average risk for colorectal cancer who were screened with both Cologuard and colonoscopy. (Yaz Jalloh. et al, N Engl J Med 2014;370(14):1286- 1297) The normal value (reference range) for this assay is negative. COLOGUARD RE-SCREENING RECOMMENDATION: Periodic colorectal cancer screening is an important part of preventive healthcare for asymptomatic individuals at average risk for colorectal cancer. Following a negative Cologuard result, the [place] [employer] Society and U.S. Multi-Society Task Force screening guidelines recommend a Cologuard re-screening interval of 3 years. References: [place] [employer] Guideline for Colorectal Cancer Screening: https://www.cancer.org/cancer/iwgqo-npbkba-gjbmzq/rzkgugocp-hzvfaigdj-yhjpqyy/ac s-rec ommendations.html.; Bin BRANDT, Elvia FINCH, Scott GranadosK, Colorectal Cancer Screening: Recommendations for Physicians and Patients from the U.S. Multi-Society Task Force on Colorectal Cancer Screening , Am J Gastroenterology 2017; 112:3052-9986. TEST DESCRIPTION: Composite algorithmic analysis of stool DNA-biomarkers with hemoglobin immunoassay. Quantitative values of individual biomarkers are not reportable and are not associated with individual biomarker result reference ranges. Cologuard is intended for colorectal cancer screening of adults of either sex, 45 years or older, who are at average-risk for colorectal cancer (CRC). Cologuard has been approved for use by the U.S. FDA. The performance of Cologuard was established in a cross sectional study of average-risk adults aged 50-84. Cologuard performance in patients ages 45 to 49 years was estimated by sub-group analysis of near-age groups. Colonoscopies performed for a positive result may find as the most clinically significant lesion: colorectal cancer [4.0%], advanced adenoma (including sessile serrated polyps greater than or equal to 1cm diameter) [20%] or non- advanced adenoma [31%]; or no colorectal neoplasia [45%]. These estimates are derived from a prospective cross-sectional screening study of 10,000 individuals at average risk for colorectal cancer who were screened with both Cologuard and colonoscopy. (Yaz Jalloh. et al, N Engl J Med 2014;370(14):0010-2878.) Cologuard may produce a false negative or false positive result (no colorectal cancer or precancerous polyp present at colonoscopy follow up). A negative Cologuard test result does not guarantee the absence of CRC or advanced adenoma (pre-cancer). The current Cologuard screening interval is every 3 years. ([place] Cancer Society and U.S. Multi-Society Task Force). Cologuard performance data in a 10,000 patient pivotal study using colonoscopy as the reference method can be accessed at the following location: www.[employer]/results. Additional description of the Cologuard test process, warnings and precautions can be found at www.[employer].com. Stool specimen (specimen) 03/27/2025 9:04 AM EST 03/28/2025 2:54 PM EST Italo Bermudez MD LAB MOLECULAR DIAG NOSTICS ORDERABLES Final Result [facility] (CLIA #:[id number]) [address] [place] [address], * BI Mammogram Screening Tomosynthesis Bilateral (03/07/2025 2:56 PM EDT) Anatomical Region Laterality Modality Breast Bilateral Mammography 03/07/2025 2:56 PM EDT Narrative 03/13/2025 11:43 AM EST [place] [facility] [address] [place] [address] Mammography Report Signed Patient: Shalini Price V MR#: [id number] : 1960 Acct:[id number] Age/Sex: 64 / F ADM Date: 03/07/25 Loc: HO.MAMMO Attending Dr: Italo Bermudez MD Ordering Physician: Italo Killian MD Res ults: 1Negative Date of Service: 03/07/25 Follow Up: 1 Year From Orig ina Mammogram Procedure(s): MM tomosynthesis screening BI Accession Number(s): [id number] cc: Italo Killian MD Reason For Exam: Z12.31 EXAMINATION: MM SCREENING DIGITAL BREAST TOMOSYNTHESIS, BILATERAL CLINICAL INFORMATION: Screening. Asymptomatic. COMPARISON: Mammography: Comparison is made with available priors TECHNIQUE: Digital breast mammography with tomosynthesis is performed in both the craniocaudal and mediolateral oblique views along with computer-aided detection (CAD). FINDINGS: There are scattered areas of fibroglandular density. There are no significant masses, abnormal calcifications, or other abnormalities. MM/MM tomosynthesis screening BI IMPRESSION: No mammographic evidence of malignancy. ASSESSMENT: BI-RADS Category 1: Negative RECOMMENDATION: Routine annual mammography screening. 1 year F/U This examination should not preclude the clinical evaluation of a suspicious palpable abnormality. This patient's information was entered into a reminder system with a target due date for their next mammogram. Electronically signed by: Mily Dean DO 03/13/2025 11:41 AM EST Dictated By: Mily Dean DO Signed By: <Electronically signed by Mily Dean DO in OV> 03/13/25 1141 DD/ 1456 TD/TT: 03/07/25 151 Foot Cutter: Procedure Note Donotuseinterpreter, Image - 03/13/2025 [place] [facility] [address] [place] [address] Mammography Report Signed Patient: Shalini Price VMR#: [id number] : 2Acct:[id number] Age/Sex: 64 / FADM Date: 03/07/25 Loc: HO.MAMMO Attending Dr: Italo Bermudez MD Ordering Physician: Italo Killian ults: 1Negative Date of Service: 03/07/25Follow Up: 1 Year From Orig inal Mammogram Procedure(s): MM tomosynthesis screening BI Accession Number(s): [id number] cc: Italo Killian MD Reason For Exam: Z12.31 EXAMINATION: MM SCREENING DIGITAL BREAST TOMOSYNTHESIS, BILATERAL CLINICAL INFORMATION: Screening. Asymptomatic. COMPARISON: Mammography: Comparison is made with available priors TECHNIQUE: Digital breast mammography with tomosynthesis is performed in both the craniocaudal and mediolateral oblique views along with computer-aided detection (CAD). FINDINGS: There are scattered areas of fibroglandular density. There are no significant masses, abnormal calcifications, or other abnormalities. MM/MM tomosynthesis screening BI IMPRESSION: No mammographic evidence of malignancy. ASSESSMENT: BI-RADS Category 1: Negative RECOMMENDATION: Routine annual mammography screening. 1 year F/U This examination should not preclude the clinical evaluation of a suspicious palpable abnormality. This patient's information was entered into a reminder system with a target due date for their next mammogram. Electronically signed by: Mily Dean DO 03/13/2025 11:41 AM EST Dictated By: Mily Dean DO Signed By: <Electronically signed by Mily Dean DO in OV> 03/13/25 1141 DD/ 1456 TD/TT: 03/07/25 1515 Foot Cutter: Italo Bermudez MD IMG BI PROCEDURES Edited Result - Final * (ABNORMAL) Lipid Panel, Standard (09/06/2024 9:30 AM EDT) Triglycerides 295(H) <150 mg/dL [facility] Comment:Desirable Triglyceri de: less than 150 mg/dLBorderline High Triglyceride 150-199 mg/dLHigh Triglyceride: 200-499 mg/dLVery High Triglyceride: greater than or equal to 5OO mg/dL Cholesterol 227(H) <200 mg/dL [facility] Comment:Desirable Cholestero l: less than 200 mg/dLBorderline High Cholesterol: 200-239 mg/dLHigh Cholesterol: greater than 239 mg/dL LDL Cholesterol Calculated 129(H) <100 mg/dL [facility] Comment:Desirable LDL: less than 100 mg/dLNear Optimal/Above Optimal LDL: 110- 129 mg/dLBorderline High LDL: 130-159 mg/dLHigh LDL: 160-189 mg/dLVery High LDL: greater than or equal to 190 mg/dL HDL Cholesterol 39(L) >40 mg/dL [facility] Comment:Desirable HDL: great er than 40 mg/dL Note: This HDL assay may give artificially low results in patients with liver disease. Blood Venous blood specimen / Unknown 09/06/2024 9:30 AM EDT 09/06/2024 2:20 PM EDT us Italo Bermudez MD LAB BLOOD ORDERABL ES Final Result [facility] [address] [place] [phone] * Hepatitis C Viral RNA, Quantitative, Real-Time PCR (11/10/2023 10:30 AM EDT) Hepatitis C Viral Load <15 NOT DETECTED NOT DETECTED IU/mL [facility] HCV Log PCR <1.18 NOT DETECTED NOT DETECTED Log IU/mL [facility] Comment:For additional infor mation, please refer tohttp://education.[employer] [place]/faq/QWS64p9(This link is being provided for informational/educational purposes only.)THIS TEST WAS PERFORMED AT:[facility] [place] [id number] BARNHART MD Blood Venous blood specimen / Unknown 11/10/2023 10:30 AM EDT 11/10/2023 1:02 PM EDT us Lisbeth Velez MD LAB BLOOD ORDERABLES Final Result Performing Organization Address [facility]/ZIP Co de Phone Number [facility] [address] [place] [phone] [phone] * HIV-1/2 Antigen and Antibodies, Fourth Generation, with Reflexes (11/10/2023 10:30 AM EDT) [facility] HIV AB/AG Nonreactive Nonreactive [facility] Comment:HIV-1 p24 Ag and/or HIV-1/HIV-2 Ab not detected.A test result that is nonreactive does not exclude thepossibility of exposure to or infection with HIV-1 and/orHIV-2. Nonreactive results in this assay for individualswith prior exposure to HIV-1 and/or HIV-2 may be due toantigen and antibody levels that are below the limit ofdetection of this assay.The [employer] HIV Ag/Ab Combo assay result andsupplemental assay results should be interpreted inconjunction with the patient's clinical presentation,history and other laboratory results. If the results areinconsistent with clinical evidence, additional testing issuggested to confirm the result. Blood Venous blood specimen / Unknown 11/10/2023 10:30 AM EDT 11/10/2023 1:02 PM EDT us Lisbeth Velez MD LAB BLOOD ORDERABLES Final Result Performing Organization Address [facility]/ZIP Co de Phone Number [facility] [address] [place] [address] [phone] from Last 3 Months or Most Recently Relevant to Health Maintenance Insurance [facility] C3 Care Teams Injection Molding Operator Relationship Specialty Start Date End Date Italo Killian MD [address] [place] [phone] PCP - General Internal Medicine 01/18/24
--- OUTSIDE RECORDS SUMMARY | 2025-04-18 20:17 | XMS_ITS | Encounter Summary ---
Author Organization [employer] Address [address] [place] [address] Care Team Providers Care Convex Grinder Operator Name Role Phone Italo Killian MD Primary Care Prov ider Encounter Details Date Type Department Care Team (Latest Contact Info) Description 04/18/2025 Travel Social History Tobacco Use Types Packs/Day [...] documented as of this encounter Care Teams Convex Grinder Operator Relationship Specialty Start Date End Date Italo Killian MD [address] [place] [phone] PCP - General Internal Medicine 01/18/24 documented as of this encounter
== END 2025-04-18 14:18 | disposition home or self-care (01) ==
LOC: HO.LNP 14:17
PROVIDERS: Visit Provider Family Medicine
DX: Z12.4 Encounter for screening for malignant neoplasm of cervix (principal)
CPT/HCPCS: 87626; 88175

== ENCOUNTER 2025-05-01 10:25 | Outpatient (REF) | payer MEDICAID, SELFPAY ==
--- OUTSIDE RECORDS SUMMARY | 2025-05-01 12:46 | XMS_ITS | Clinical Summary ---
Author Organization [employer] Address [address] [place] [address] Care Team Providers Care Vamp Seamer Name Role Phone Italo Killian MD Primary [...] losartan as prescribed, risk were dicussed including /PA/CVA. She understands the risk and wants to [...] disability due to MDD hx A0 LMP 2002 Screening for colon cancer 01/18/2024 Assessment & Plan (01/18/2024 4:24 PM EDT): Will place referral for evaluation Screening for cervical cancer 01/18/2024 Assessment & Plan (04/19/2025 1:32 PM EST): 64 y.o. here for cervical cancer screening. Will continue monitoring following ASCCP guidelines. Assessment & Plan (01/18/2024 4:25 PM EDT): [...] discussed, including high risk for stroke and PA, new labs ordered Assessment & Plan (02/15/2024 [...] Encounters Date Type Department Care Team Description 04/20/2025 Telephone [facility] [address] [place] [address] Italo Killian MD 04/18/2025 10:20 AM EST Procedure Visit [facility]ED[facility] [address] [place] [address] Joann Ny MD Screening for cervical cancer (Primary Dx) 04/18/2025 Travel 04/17/2025 Telephone [facility] [address] [place] [address] Italo Killian MD chart prep 04/15/2025 Travel 03/07/2025 Orders Only [facility] & PEDS [address] [place] [address] Italo Killian MD 02/21/2025 10:30 AM EDT Telemedicine [facility] [address] [place] [address] Italo Killian MD Primary hypertension (Primary Dx); [...] 1960 Colonoscopy 1960 FIT 1960 Sigmoidoscopy 1960 Influenza Vaccine (#1) 2025 01/18/2024 Postp oned from 01/09/2025 (Patient Refused) Alcohol/Substance Use Screening 02/21/2026 02/21/2025 Depression Screening 02/21/2026 02/21/2025, 02/21/2025 SDOH Screening 02/21/2026 02/21/2025 FOBT 03/27/2026 03/27/2025 Disability Screening 04/15/2026 04/15/2025 COVID-19 Vaccine ( - 2024-2 6 season) 2026 Postponed from 09/01 /2025 (Patient Refused) Pneumococcal Vaccine: 50+ Years (1 of 1 - PCV) 04/18/2026 Postponed from 10/2011 (Patient Refused) Tobacco Screening 04/18/2026 04/18/2025 Zoster Vaccines (1 of 2) 04/18/2026 Pos tponed from 2011 (Patient Refused) Mammogram 03/07/2027 03/07/2025, 03/01/2024 Colorectal Cancer Screening 03/27/2028 FIT DNA/Cologuard 03/27/2028 03/27/2025 Pap Smear 04/18/2028 04/18/2025 Lipid Panel 09/06/2029 09/06/2024, 11/10/2023 Cervical Cancer Screening 04/19/2030 HPV/Cotest 04/19/2030 04/19/2025 DTaP/Tdap/Td Vaccines (2 - T d or [...] Procedure Name Priority Date/Time Associated Diagnosis Comments HPV DNA, LOW/HIGH RISK Routine 04/19/2025 12:00 AM EST Screening for cervical cancer PAP SMEAR Routine 04/18/2025 12:00 AM EST Screening for cervical cancer LAB COLOGUARD COLON CANCER SCREEN Routine 03/27/2025 [...] Recently Relevant to Health Maintenance Results * HPV High Risk with Reflex to Subtypes (04/19/2025 12:00 AM EST) HPV High Risk Negative Negative [facility] HPV Genotype 16 Negative Negative [facility] HPV Genotype 18 Negative Negative [facility] Comment:HPV testing performe d at [facility] (CLIA#[id number]), [address] [place] [address].Testing for HPV was performed using the [employer] ANDREW 6800system. The presence of HPV in the female genital tract isassociated with a number of diseases, including cervicalcarcinoma. The HPV DNA high risk pool tests for HPV 31, 33,35, 39, 45, 51, 52, 56, 58, 59, 66 and 68. The testing forHPV 16 and 18 genotypes has also been performed. A positiveresult indicates detection of nucleic acid sequences fromone or more subtypes, whereas a negative result indicatessuch sequences were not detected. Pap Vial 04/19/2025 04/20/2025 7:2 3 AM EST us Joann Ny MD LAB BLOOD ORDERABLES Final Re sult [facility] [address] [place] [address] [phone] * Pap Smear (04/18/2025 12:00 AM EST) Swab Cervical swab / Unknown 04/18/2025 04/20/2025 7:23 AM EST Narrative [facility] - 04/25/2025 12:38 PM EST ----- ------- Name: Shalini Price V Age/Sex: 64/F : 1960 Unit#: [id number] Attend Dr: Joann Ny MD Re04/18/25 Status: [facility] REF Location: [facility] Disch: ----- ------- SPEC : [id number] RECD: 04/20/25 STATUS: MADDY REQ NUM: [id number] AVERY: 04/18/25-[address]: Joann Ny MD ENTERED: 04/20/25 SP TYPE: Pap Smr OT DR: ORDERED: Pap Smear Interpretation Satisfactory for evaluation. Negative for intraepithelial lesion or malignancy. Atrophic. HPV High Risk: Negative HPV Genotyping 16: Negative HPV Genotyping 18: Negative Clinical Information LMP: Post menopausal Previous PAP test: Unknown date, WNL Other history: Screening for cervical cancer Material Received ThinPrep-Cervical PAP Disclaimer As of March 02, 2024, the technical services to include automated prescreening performed by the ThinPrep Imaging System, PAP screening and HPV testing will be performed at [facility] (CLIA #[id number]), [address] [place] [address]. Testing for HPV was performed using the [employer] ANDREW 6800 system. The presence of HPV in the female genital tract is associated with a number of diseases, including cervical carcinoma. The HPV DNA high risk pool tests for HPV 31, 33, 35, 39, 45, 51, 52, 56, 58, 59, 66 and 68. The testing for HPV 16 and 18 genotypes has also been performed. A positive result indicates detection of nucleic acid sequences from one or more subtypes, whereas a negative result indicates such sequences were not detected. All professional services are performed by [facility] ([address] [place], [place] [id number]; ; CLIA #[id number]). The PAP Test is a screening procedure with the inherent possibility of both false negative and false positive results. Results should be interpreted in the context of historic and current clinical findings. Reliability of the PAP Test is enhanced by performing the test on a regular repetitive basis. CONTINUED ON NEXT PAGE ----- ------- Name: Shalini Price V Age/Sex: 64/F : 1960 Unit#: [id number] Attend Dr: Joann Ny MD Re04/18/25 Status: DEP REF Location: HO.LNP Disch: ----- ------- SPEC : [id number] RECD: 04/20/25 STATUS: MADDY TRIPP NUM: [id number] AVERY: 04/18/25-[address]: Joann Ny MD ENTERED: 04/20/25 SP TYPE: Pap Smr OTHR DR: ORDERED: Pap Smear ----- ------- Signed (signature on file) LANDEN Moody (ASCP) 04/25/25 1238 ----- ------- END OF REPORT us Joann Ny MD LAB CYTOLOGY ORDERABLES Final Result [facility] [address] [place] [phone] * Cologuard?? colon cancer screening (03/27/2025 9:04 AM EST) Cologuard Result Negative Negative 04/02/20 12:25 PM EST [facility] (CLIA #:[id number]) Comment: The Cologuard (TM) test was performed [...] screened with both Cologuard and colonoscopy. (Yaz Lainez al, N Engl J Med 2014;370(14):1286- 1297) The normal value (reference range) for this assay is negative. COLOGUARD RE-SCREENING RECOMMENDATION: Periodic colorectal cancer screening is an important part of preventive healthcare for asymptomatic individuals at average risk for colorectal cancer. Following a negative Cologuard result, the [place] [employer] Society and U.S. Multi-Society Task Force screening guidelines recommend a Cologuard re-screening interval of 3 years. References: [place] [employer] Guideline for Colorectal Cancer Screening: https://www.cancer.org/cancer/vwhjw-jttarp-zuumik/vpiortipc-dcraufzel-jxmlijv/ac s-rec ommendations.html.; Bin DK, Elvia CR, Scott GranadosK, Colorectal Cancer Screening: Recommendations for Physicians and Patients from the U.S. Multi-Society Task Force on Colorectal Cancer Screening , Am J Gastroenterology 2017; 112:3511-8778. TEST DESCRIPTION: Composite algorithmic analysis of stool [...] screened with both Cologuard and colonoscopy. (Yaz López, N Engl J Med 2014;370(14):8902-7521.) Cologuard may produce a false negative or false positive result (no colorectal cancer or precancerous polyp present at colonoscopy follow up). A negative Cologuard test result does not guarantee the absence of CRC or advanced adenoma (pre-cancer). The current Cologuard screening interval is every 3 years. ([place] [employer] Society and U.S. Multi-Society Task Force). Cologuard performance data in a 10,000 patient pivotal study using colonoscopy as the reference method can be accessed at the following location: www.SocialSign.in.EnStorage/results. Additional description of the Cologuard test process, warnings and precautions can be found at www.[employer] Holdings[employer].EnStorage. Stool specimen (specimen) 03/27/2025 9:04 AM EST 03/28/2025 2:54 PM EST Italo Bermudez MD LAB MOLECULAR DIAG NOSTICS ORDERABLES Final Result [facility] (CLIA #:[id number]) [address] [place] [address], * BI Mammogram Screening Tomosynthesis Bilateral (03/07/2025 2:56 PM EDT) Anatomical Region Laterality Modality Breast Bilateral Mammography 03/07/2025 2:56 PM EDT Narrative 03/13/2025 11:43 AM EST [facility] [address] [place] [address] Dr. Fitzgerald, [place] [address] Mammography Report Signed Patient: Shalini Price V MR#: [id number] : 1960 Acct:[id number] Age/Sex: 64 / F ADM Date: 03/07/25 Loc: HO.MAMMO Attending Dr: Italo Bermudez MD Ordering Physician: Italo Killian MD Res ults: 1Negative Date of Service: 03/07/25 Follow Up: 1 Year From Orig inal Mammogram Procedure(s): MM tomosynthesis screening BI Accession Number(s): [id number] cc: Italo Killian MD Reason For Exam: [...] 03/13/25 1141 DD/ 1456 TD/TT: 03/07/25 1515 Nougat Cutter Machine: Procedure Note Donotuseinterpreter, Image - 03/13/2025 [facility] [address] Fitzgerald, [place] [address] Mammography Report Signed Patient: Shalini Price VMR#: [id number] : 2Acct:[id number] Age/Sex: 64 / FADM Date: 03/07/25 Loc: MAMMO Attending Dr: Italo Bermudez MD Ordering Physician: Italo Killian ults: 1Negative Date of Service: 03/07/25Follow Up: 1 Year From [facility] Mammogram Procedure(s): MM tomosynthesis screening BI Accession Number(s): [id number] cc: Italo Killian MD Reason For Exam: [...] by: Mily Dean DO 03/13/2025 11:41 AM [facility] Dictated By: Mily Dean DO Signed By: <Electronically signed by Mily Dean DO in OV> 03/13/25 1141 DD/ 1456 TD/TT: 03/07/25 1515 Nougat Cutter Machine: Italo Bermudez MD [facility] BI PROCEDURES Edited Result - Final * (ABNORMAL) Lipid Panel, Standard (09/06/2024 9:30 AM EDT) Triglycerides 295(H) <150 mg/dL [facility] Comment:Desirable Triglyceri de: less than 150 mg/dLBorderline High Triglyceride 150-199 mg/dLHigh Triglyceride: 200-499 mg/dLVery High Triglyceride: greater than or equal to 5OO mg/dL Cholesterol 227(H) <200 mg/dL [facility] Comment:Desirable Cholestero l: less than 200 mg/dLBorderline High Cholesterol: 200-239 mg/dLHigh Cholesterol: greater than 239 mg/dL LDL Cholesterol Calculated 129(H) <100 mg/dL [facility] Comment:Desirable LDL: less than 100 mg/dLNear Optimal/Above Optimal LDL: 110- 129 mg/dLBorderline High LDL: 130-159 mg/dLHigh LDL: 160-189 mg/dLVery High LDL: greater than or equal to 190 mg/dL HDL Cholesterol 39(L) >40 mg/dL [facility] Comment:Desirable HDL: great er than 40 mg/dL Note: This HDL assay may give artificially low results in patients with liver disease. Blood Venous blood specimen / Unknown 09/06/2024 9:30 AM EDT 09/06/2024 2:20 PM EDT us Italo Bermudez MD LAB BLOOD ORDERABL ES Final Result Performing Organization Address [facility] Co de Phone Number [facility] [address] [place] [phone] * Hepatitis C Viral RNA, Quantitative, Real-Time PCR (11/10/2023 10:30 AM EDT) Hepatitis C Viral Load <15 NOT DETECTED NOT DETECTED IU/mL [facility] HCV Log PCR <1.18 NOT DETECTED NOT DETECTED Log IU/mL [facility] Comment:For additional infor susan, please refer tohttp://education.Backpack/faq/NQK64k7(This link is being provided for informational/educational purposes only.)THIS TEST WAS PERFORMED AT:[employer] [place] [phone] BARNHART MD Blood Venous blood specimen / Unknown 11/10/2023 10:30 AM EDT 11/10/2023 1:02 PM EDT us Lisbeth Velez MD LAB BLOOD ORDERABLES Final Result Performing Organization Address [facility] Co de Phone Number [facility] [address] [place] [phone] * HIV-1/2 Antigen and Antibodies, Fourth Generation, with Reflexes (11/10/2023 10:30 AM EDT) HIV AB/AG Nonreactive Nonreactive [facility] Comment:HIV-1 p24 Ag and/or HIV-1/HIV-2 Ab not detected.A test result that is nonreactive does not exclude thepossibility of exposure to or infection with HIV-1 and/orHIV-2. Nonreactive results in this assay for individualswith prior exposure to HIV-1 and/or HIV-2 may be due toantigen and antibody levels that are below the limit ofdetection of this assay.The [employer]Lock HIV Ag/Ab Combo assay result andsupplemental assay results should be interpreted inconjunction with the patient's clinical presentation,history and other laboratory results. If the results areinconsistent with clinical evidence, additional testing issuggested to confirm the result. Blood Venous blood specimen / Unknown 11/10/2023 10:30 AM EDT 11/10/2023 1:02 PM EDT us Lisbeth Velez MD LAB BLOOD ORDERABLES Final Result [facility] [address] [place] [phone] from Last 3 Months or Most Recently Relevant to Health Maintenance Insurance [facility] C3 Care Teams Vamp Seamer Relationship Specialty Start Date End Date Italo Killian MD [address] [place] [phone] PCP - General Internal Medicine 01/18/24
[2025-05-01 15:20] LABS: MANUAL DIFF FLAG NO
[2025-05-01 15:31] LABS: Hematocrit 40.1 % (37.0-47.0); Hemoglobin 12.9 g/dl (12.0-16.0); Imm Gran Abs Auto 0.01 X10*3/uL (0.00-0.03); Imm Gran Pct Auto 0.2 % (0.0-0.4); Lymphocytes Absolute Auto 2.0 X10*3/uL (1.2-4.9); Mean Corpuscular HGB Conc 32.2 g/dl (31.0-35.0); Mean Corpuscular Hemoglobin 28.7 pg (27.0-33.0); Mean Corpuscular Volume 89.1 fL (80.0-98.0); NRBC Abs Auto 0.000 X10*3/uL (0.0-0.012); NRBC Pct Auto 0.0 /100WBC (0.0-0.2); Platelet Count 253 X10*3/uL (160-400); Red Blood Count 4.50 X10*6/uL (4.20-5.50); White Blood Count 5.5 X10*3/uL (4.8-10.8)
[2025-05-01 15:52] LABS: Alanine Aminotransferase 18 U/L (0-31); Albumin Level 4.7 g/dL (3.5-5.0); Alkaline Phosphatase 58 U/L (39-117); Anion Gap 12 (12-20); Aspartate Amino Transferase 28 U/L (5-31); Blood Urea Nitrogen 9 mg/dL (9-16); Calcium 9.7 mg/dL (8.4-10.2); Carbon Dioxide 30 mmol/L (22-29); Chloride 104 mmol/L (96-108); Cholesterol 285 mg/dL (<200); Estimated Glomerular Filt Rate > 60; HDL Cholesterol 42 mg/dL (>40); Potassium 4.2 mmol/L (3.3-5.1); Sodium 142 mmol/L (135-145); Total Protein 7.4 g/dL (6.5-8.0); Triglycerides 178 mg/dL (<150)
== END 2025-05-01 10:26 | disposition home or self-care (01) ==
LOC: HO.CHCLDS 10:25
PROVIDERS: Visit Provider Internal Medicine
DX: I10 Essential (primary) hypertension (principal)
CPT/HCPCS: 36415; 80053; 80061; 85025